=== PATIENT | male | born 1990 | race Asian ===

== ENCOUNTER 2021-03-29 09:13 | Day surgery (SDC) | payer OTHER | END 2021-03-29 09:55 | disposition left against medical advice (07) | DRG 894 | LOC: ANR 09:13 → MS2 09:20 → ANR 09:55 | PROVIDERS: ATTEND Anesthesiology | DX: F11.20 Opioid dependence, uncomplicated (principal) ==

== ENCOUNTER 2021-04-07 08:27 | Day surgery (SDC) | payer OTHER ==
[~2021-04-07] VITALS: Ht 180.3 cm; Wt 72.7 kg
[2021-04-07 09:27] VITALS: BP 113/73
[2021-04-07 10:02] LABS: HEMOGLOBIN 14.5 g/dl (14.0-18.0); MEAN CELL VOLUME 88.2 fL CALC (80.0-100.0); MEAN CORPUSCULAR HGB 29.1 pG CALC (26.0-32.0); NEUT# 2.56 thou/uL (1.82-7.42); RED BLOOD COUNT 4.99 mill/uL (4.70-6.10); RED CELL DISTRI WIDTH 13.1 % (11.5-15.5)
[2021-04-07 10:18] LABS: ALBUMIN 4.3 g/dL (3.2-5.0); ALKALINE PHOSPHATASE 76 u/l (38-126); ANION GAP 14 (6-22 (CALC)); BILIRUBIN, TOTAL 0.5 mg/dL (0.0-1.4); BUN 15 mg/dL (9-20); BUN/CREATININE RATIO 24 (12-20 (CALC)); CARBON DIOXIDE 24 mmol/l (22-30); CHLORIDE 105 mmol/l (95-108); CREATININE 0.6 mg/dL (0.7-1.3); GFR > 60 ML/MIN (>=60 (CALC)); GFR FOR AFR.AMER. > 60 ML/MIN (>=60 (CALC)); SGOT/AST 53 u/l (17-59); SODIUM 138 mmol/l (137-146); TOTAL PROTEIN 7.3 g/dL (6.3-8.2)
[2021-04-07 11:15] VITALS: BP 99/63
[2021-04-07] MEDS ORDERED: NALTREXONE50 MG PO (13:37)
[2021-04-07] MEDS ORDERED: CLONIDINE0.1 MG PO (13:38)
[2021-04-07] MEDS ORDERED: KLONOPIN0.5 MG PO (13:39)
[2021-04-07 22:31] VITALS: BP 104/65
[2021-04-08 06:41] LABS: ALBUMIN 4.3 g/dL (3.2-5.0); ALKALINE PHOSPHATASE 82 u/l (38-126); ANION GAP 14 (6-22 (CALC)); BILIRUBIN, TOTAL 0.6 mg/dL (0.0-1.4); BUN 12 mg/dL (9-20); BUN/CREATININE RATIO 22 (12-20 (CALC)); CARBON DIOXIDE 24 mmol/l (22-30); CHLORIDE 105 mmol/l (95-108); CREATININE 0.5 mg/dL (0.7-1.3); GFR > 60 ML/MIN (>=60 (CALC)); GFR FOR AFR.AMER. > 60 ML/MIN (>=60 (CALC)); POTASSIUM 3.5 mmol/l (3.5-5.1); SGOT/AST 64 u/l (17-59); SODIUM 139 mmol/l (137-146); TOTAL PROTEIN 7.4 g/dL (6.3-8.2)
[2021-04-08 07:32] VITALS: BP 82/59
[2021-04-08 10:38] VITALS: BP 93/55
== END 2021-04-08 10:34 | disposition home or self-care (01) | DRG 897 ==
LOC: ANR 08:27 → MS2 08:32 → ANR 12:30
PROVIDERS: ATTEND Anesthesiology
DX: F11.20 Opioid dependence, uncomplicated (principal)
CPT/HCPCS: J2354